=== PATIENT | female | born 1970 | race Caucasian/White ===

== ENCOUNTER 2021-02-12 12:18 | Emergency (ER) | payer BC, SELFPAY ==
[2021-02-12 12:26] VITALS: BP 155/73; PULSE 66; RESP 16; TEMP 36.6; O2SAT 95; BMI 34.2
--- NOTE | 2021-02-12 13:01 | ED_ITS ---
HPI - General Adult General: Chief complaint: General Medical Stated complaint: throat feels sore, painful swallowing Time Seen by Provider: 02/12/21 12:35 History of Present Illness: HPI narrative: 50-year-old female with multiple complaints. Such as sore throat difficulty swallowing at times feels like she cannot breathe or swallow she is lost 40 pounds. She is also had extreme onset of anxiety. When seen patient she is shaking uncontrollably and crying. She has seen several doctors nearby her hometown in [facility]. She is recently seen by a outpatient clinic and started on Augmentin for a sinus infection. She has not had any hemoptysis. She said at times her heart voice gets very sore she has a lot of nasal drainage this is been going on for several months. Onset (ago): month(s) Location: neck Radiation: non-radiation Pain Consistency: intermittent Relieving factors: none Exacerbating factors: none Associated symptoms: Reports decreased appetite and nausea; Deny chest pain, confusion, cough, diaphoresis, dyspnea, fevers/chills, headache(s), malaise, rash, palpitations, seizures, short of breath, syncope, vomiting or weakness Treatments prior to arrival: none Review of Systems Const: Denies: malaise or diaphoresis ENMT: Denies: throat pain, ear or mastoid pain, nasal discharge or nasal congestion Card: Denies: chest pain, palpitations or syncope Resp: Denies: dyspnea GI: Reports: nausea; Denies: vomiting : Denies: flank pain, difficulty voiding, dysuria, urinary frequency or urinary urgency Skin/Breast: Denies: rash Neuro: Denies: headache(s) or confusion Physical Exam Const: COMMON NORMALS: no acute distress GENERAL APPEARANCE: cooperative and comfortable ORIENTATION/CONSCIOUSNESS: Yes awake, Yes oriented to person, Yes oriented to place and Yes oriented to time HENMT: COMMON NORMALS: normocephalic, atraumatic, hearing grossly normal bilaterally, external ears normal, Normal nasal mucous membranes and turbinates present, moist oral mucous membranes and oropharynx normal HEAD & SCALP: normocephalic and atraumatic NOSE: Normal nasal mucous membranes and turbinates present EXTERNAL EAR: Yes external ears normal Eye: COMMON NORMALS: Equal, round and reactive pupils present, EOMs intact bilaterally, conjunctivae normal and no scleral icterus CONJUNCTIVA: Yes conjunctivae normal PUPIL: Yes Equal, round and reactive pupils present Neck/C-Spine: COMMON NORMALS: full ROM, no lymphadenopathy, supple and no JVD Lymph: LYMPHATIC: no lymphadenopathy noted and no lymphedema noted Resp: COMMON NORMALS: normal respiratory effort, No retractions, No use of accessory muscles and clear to auscultation bilaterally AUSCULTATION: clear to auscultation bilaterally Cardio: COMMON NORMALS: no JVD, regular rate, regular rhythm and No murmurs present (Cardio) RATE: regular rate RHYTHM: regular rhythm Extremity: COMMON NORMALS: normal to inspection, capillary refill normal, no clubbing, cyanosis or edema, no calf tenderness and no pedal edema Neuro: SENSORIUM/ORIENTATION: Yes oriented to person, Yes oriented to place and Yes oriented to time Skin: COMMON NORMALS: no rashes or lesions noted GENERAL SKIN EXAM: no rashes or lesions noted Course Vital Signs: Vital signs: Vital Signs Temperature 97.8 F 02/12/21 12:26 Pulse Rate 66 02/12/21 12:26 Respiratory Rate 16 02/12/21 12:26 Blood Pressure 155/73 02/12/21 12:26 Pulse Oximetry 95 02/12/21 12:26 Discharge Plan Discharge Patient Disposition: Home Clinical Impression: Anxiety, Dysphagia Condition: Stable Discharge Orders: Discharge ED (Routine); Ordered 02/12/21 Ordered By: Young Patterson Patient Instructions: Opioid Safety Activity Restrictions/Additional Instructions: Complete the course of previously prescribed antibiotics. When you return home strongly recommend you follow-up with your primary care doctor for referral to ear nose and throat. Coding Level of Care Code ED Hair Sample Matcher for Chg Fwd Exam Comprehensive
[2021-02-12 13:26] VITALS: BP 151/70; PULSE 60; RESP 18; O2SAT 95
== END 2021-02-12 13:27 | disposition home or self-care (01) ==
PROVIDERS: Emergency Provider Family Medicine
DX: R13.10 Dysphagia, unspecified (principal); F41.9 Anxiety disorder, unspecified
CPT/HCPCS: 99281